=== PATIENT | female | born 1995 | race Caucasian/White ===

== ENCOUNTER 2018-04-27 11:26 | Emergency (ER) | payer MEDICAID, SELFPAY ==
[2018-04-27 11:27] VITALS: BP 154/77; PULSE 86; RESP 18; TEMP 36.6; O2SAT 98; BMI 33.3
--- NOTE | 2018-04-27 11:46 | US_ITS ---
STUDY: FIRST TRIMESTER OBSTETRICAL ULTRASOUND REASON FOR EXAM: Female, 23 years old. Pelvic/low back pain for 3 days. LMP: February 05, 2018 TECHNIQUE: Transvaginal PRIOR ULTRASOUND: None. FINDINGS: There is visualization of a single gestational sac in a normal intrauterine position. The gestational sac shape is within normal limits. There is a visualized yolk sac. The yolk sac measures 6 mm. The placenta is non-visualized. 2.1 x 1.9 x 0.7 cm hypoechoic area along the right inferior margin of the gestational sac is consistent with a small subchorionic hemorrhage. There is visualization of a live embryo. The crown-rump length (CRL) measures 6.02 cm, indicating an estimated gestational age (EGA) of 12 weeks, 4 days. There is demonstrated cardiac activity with a heart rate of 146 bpm. The estimated gestation age (EGA) by LMP is 11 weeks, 4 days. The estimated date of delivery (KYLE) by LMP is November 12, 2018. The estimated gestation age (EGA) by US is 12 weeks, 4 days. The estimated date of delivery (KYLE) by US is November 05, 2018. The uterus measures 12.3 x 8.1 x 7.5 cm. There is no demonstrated uterine fibroid. The cervix is closed. The right ovary measures 3.1 x 3.2 x 1.5 cm. There is no right ovarian cyst. There is no visualized right adnexal mass or complex lesion. The left ovary measures 2.8 x 1.9 x 1.7 cm. There is no left ovarian cyst. There is no visualized left adnexal mass or complex lesion. There is no fluid in the cul de sac. US/Transvaginal w/Preg US IMPRESSION: 1. Single living intrauterine fetus at estimated gestational age of 12 weeks, 4 days. Estimated date of delivery by today's exam of November 05, 2018. 2. 2.1 cm elongated subchorionic hemorrhage suggested along the right inferior margin of the gestational sac. 3. The ovaries are unremarkable. Electronically Signed: Jesus Ramachandran MD at 13:47 EDT , Service support ,
[2018-04-27 12:08] LABS: Absolute Lymphocyte Count 1.96 X10^3/ul (0.83-4.51); Absolute Neutrophil Count 4.4 X10^3/uL (2.0-7.7); Bacteria 0 SEEN /hpf (None Seen); Basophil# 0.01 X10^3/uL; Basophil% 0.1 % (0-1); Eosinophil# 0.07 X10^3/uL; Hematocrit 38.2 % (37-47); Hemoglobin 13.1 g/dl (12.0-15.0); Lymphocyte # 1.96 X10^3/ul (4.0); Mean Corp Hgb Conc 34.3 g/gl (32-36); Mean Corpuscular Hgb 29.5 pg (27.0-32.0); Mean Platelet Vol. 10.4 fl (6.2-12.0); Monocyte# 0.59 X10^3/uL; Monocyte% 8.4 % (0-10); Mucous, Urine 0 SEEN /hpf (<or=2+); Neutrophil # 4.38 X10^3/uL (2.7-7.7); Neutrophil % 62.5 % (47-70); Platelet Count 226 K/mm3 (150-450); RBC Distribution Width CV 12.5 % (11.6-14.6); RBC Distribution Width SD 39.5 fl (35.1-43.9); Red Blood Cells-Urine 0 SEEN /hpf (0-5); Red Blood Count 4.44 M/mm3 (4.2-5.4)
[2018-04-27 12:09] LABS: Color, Urine Yellow (Yellow); Glucose, Dipstick Normal (Normal); Ketone-Dipstick 15 mg/dl (Negative); Leukocyte Esterase-Dipstick 25 /ul (Negative); Nitrite-Dipstick Negative (Negative); Occult Blood-Urine Negative /ul (Negative); Protein-Dipstick Negative (Negative); Urine Bilirubin Dipstick Negative (Negative); Urine Clarity Sl. Cloudy (Clear); Urine Urobilinogen Normal (Normal)
[2018-04-27 12:12] LABS: POSITIVE COUNT NO; POSITIVE DIFFERENTIAL NO; POSITIVE MORPHOLOGY NO
[2018-04-27 12:15] LABS: Squamous Epithelial Cells - UA 0-5 SEEN /hpf (5-10); White Blood Cells 0-5 SEEN /hpf (0-5)
[2018-04-27] MEDS: Acetaminophen 500 MG Tablet 1000 MG PO (12:21)
[2018-04-27 12:22] LABS: Anion Gap 10 (5-15); BUN 7 mg/dL (7-18); BUN/Creat Ratio 16.2 RATIO (10-20); Calcium,Total 9.3 mg/dL (8.5-10.1); Chloride 106 mmol/L (98-107); Creatinine, Serum 0.43 mg/dL (0.55-1.02); EST Glomerular Filtration Rate 195 mL/min (>60); Est Glom Filt Rate - Afr Amer 236 mL/min (>60); Estimated Creatinine Clearance 244.52 ml/min; Glucose 79 mg/dL (74-106); Potassium 3.8 mmol/L (3.5-5.1); Sodium Level 138 mmol/L (136-145)
[2018-04-27] MEDS: 0.9% Normal Saline 1,000 ML 150 ML IV (12:22)
[2018-04-27 15:27] VITALS: BP 111/51; PULSE 89; RESP 16; O2SAT 98
--- NOTE | 2018-04-27 15:31 | ED.VISSUMM ---
- ER Visit Summary Date of Service: 04/27/18 Chief Complaint: Back pain and cramping History of Present Illness: The patient is a 23 F currently 12 weeks . She is Ab0. Patient states had back pain for the last 3 days with abdominal cramping started today only. She is not having any bleeding or discharge. She states that she is not feeling the baby move as much today. She has not yet had an ultrasound. She is scheduled to see her APPAREL RENTAL CLERK [place] on May 10. Physical Examination: Blood pressure is 154/77, otherwise vitals are normal. Head and neck examination is grossly unremarkable. Heart is regular rate and rhythm. No lung sounds are clear. Abdomen is soft with mild superpubic tenderness palpation. There is no guarding or rebound. Hypoactive bowel sounds are noted. Back examination reveals focal tenderness of the spinous processes of L4 and L5. No ecchymosis or abrasions. Test Results: CBC and chemistry studies normal. Blood type is A+. Urinalysis shows 0-5 white cells and 0-5 epithelials. Pelvic ultrasound shows single live intrauterine at 12 weeks 4 days. There is a subchorionic hemorrhage measuring 2.1 cm along the inferior margin of the gestational sac. Emergency Department Course and Treatment: Patient is given Tylenol and IV fluids. I spoke with her SENIOR MEDIA BUYER, in [place]. Patient is scheduled to follow-up with them on May 10 the patient is to keep that appointment. Repeat blood pressure is 111/51. Patient will be given note off work today and tomorrow. Treatment Plan: [] Disposition: Discharge Impression: Threatened AB This note was generated with [email or web address] dictation software. It may contain incorrect words, spelling, and punctuation that were not noted in review of the chart prior to signing ED Disposition - Plan for ED Patient: Chief Complaint: Referrals: Care Physician,No Primary [Primary Care Provider] -
--- NOTE | 2018-04-27 15:37 | ED.DCSUM_ITS ---
- ER Visit Summary Date of Service: 04/27/18 Chief Complaint: Back pain and cramping History of Present Illness: The patient is a 23 F currently 12 weeks . She is Ab0. Patient states had back pain for the last 3 days with abdominal cramping started today only. She is not having any bleeding or discharge. She states that she is not feeling the baby move as much today. She has not yet had an ultrasound. She is scheduled to see her GRADES 9 12 TUTOR [place] on May 10. Physical Examination: Blood pressure is 154/77, otherwise vitals are normal. Head and neck examination is grossly unremarkable. Heart is regular rate and rhythm. No lung sounds are clear. Abdomen is soft with mild superpubic tenderness palpation. There is no guarding or rebound. Hypoactive bowel sounds are noted. Back examination reveals focal tenderness of the spinous processes of L4 and L5. No ecchymosis or abrasions. Test Results: CBC and chemistry studies normal. Blood type is A+. Urinalysis shows 0-5 white cells and 0-5 epithelials. Pelvic ultrasound shows single live intrauterine at 12 weeks 4 days. There is a subchorionic hemorrhage measuring 2.1 cm along the inferior margin of the gestational sac. Emergency Department Course and Treatment: Patient is given Tylenol and IV fluids. I spoke with her BUS AND TROLLEY INSPECTING DISPATCHER, in [place]. Patient is scheduled to follow-up with them on May 10 the patient is to keep that appointment. Repeat blood pressure is 111/51. Patient will be given note off work today and tomorrow. Treatment Plan: [] Disposition: Discharge Impression: Threatened AB This note was generated with [employer] dictation software. It may contain incorrect words, spelling, and punctuation that were not noted in review of the chart prior to signing ED Disposition - Plan for ED Patient: Chief Complaint: Referrals: Care Physician,No Primary [Primary Care Provider] -
--- NOTE | 2018-04-27 15:38 | ED.DEP ---
ED Disposition - Plan for ED Patient: Disposition: Home or Assisted Living Chief Complaint: Instructions: ED Abdominal Pain Rule Out Ectopic Referrals: Vargas Singleton [NON-STAFF] - Keep Kirti appointment
[2018-04-27 15:47] VITALS: PULSE 91; RESP 12
== END 2018-04-27 15:48 | disposition home or self-care (01) ==
PROVIDERS: Emergency Provider Emergency Medicine
DX: O20.0 Threatened abortion (principal); J45.909 Unspecified asthma, uncomplicated; O99.331 Smoking (tobacco) complicating pregnancy, first trimester; Z3A.12 12 weeks gestation of pregnancy
CPT/HCPCS: 76817; 80048; 81001; 85025; 86900; 96360; 96361; 99283; J7030

== ENCOUNTER 2023-06-08 17:56 | Emergency (ER) | payer MEDICAID, SELFPAY ==
[2023-06-08 17:57] VITALS: BP 149/89; PULSE 87; RESP 18; TEMP 36.4; O2SAT 99; BMI 35.5
--- NOTE | 2023-06-08 18:08 | EKG12_ITS ---
Test Reason : DYSRHYTHMIA Blood Pressure : / mmHG Vent. Rate : 073 BPM Atrial Rate : 073 BPM P-R Int : 120 ms QRS Dur : 076 ms QT Int : 376 ms P-R-T Axes : 048 062 051 degrees QTc Int : 414 ms Normal sinus rhythm Normal ECG Confirmed by NEDA SIFUENTES, BRETHA ([id number]), senior technical editor WAQAS DEY ([id number]) on 06/09/2023 9:41:55 AM Referred By: TWILA Confirmed By:BERTHA RED MD
--- NOTE | 2023-06-08 18:10 | EX.ED.DYSGE1 ---
HPI History of Present Illness Chief Complaint: General Illness Narrative Narrative: 28-year-old female presenting with a combination of abdominal pain and chest pain which has been ongoing for 3 weeks. She states both of them come and go and they alternate. Patient states that she does have some worsening acid reflux symptoms. She states she does not take anything for it because she hates Tums. Patient states she eats mostly fast food and she likes to eat [employer], [employer], and she states she works at [employer] and eats there and drinks a lot of coffee. She has been having some diarrhea but no black or bloody stools or emesis. She is nauseous at times with her acid reflux. She states is taken test at home the knees have been negative. She has not had any urinary complaints. She states that all of the pain she experiences whether it is her abdomen or chest is pressure-like in addition to having acid reflux symptoms PFSH PFSH Home Medications omeprazole 20 mg capsule,delayed release 20 mg PO DAILY #30 CAPSULES 06/08/23 [Rx Last Taken Unknown] ondansetron 4 mg disintegrating tablet 4 mg PO Q8H PRN PRN Nausea #14 tabs 06/08/23 [Rx Last Taken Unknown] Allergy/AdvReac Type Severity Reaction Status Date / Time No Known Allergies Allergy Verified 06/08/23 17:58 Social History Smoking Status: Current every day smoker tobacco type: cigarettes and e-cigarettes ROS ROS ED Constitutional Constitutional ED: Denies chills, fever(s) or sweats Eyes Eyes: Denies blurry vision or change in vision ENT ENT ED: Denies ear pain or sore throat Cardiovascular Cardiovascular: Reports chest pain; Denies palpitations or racing heartbeat Respiratory/Chest Respiratory/Chest: Denies cough, dyspnea or sputum Gastrointestinal Gastrointestinal: Reports abdominal pain, diarrhea and nausea; Denies constipation or vomiting Genitourinary Genitourinary ED: Denies dysuria, hematuria or urinary frequency Musculoskeletal Musculoskeletal: Denies arthralgias, myalgias or neck pain Integumentary Denies abscess, Abrasions or rash Neurologic Neurologic: Denies headache(s), paresthesias or weakness Psychiatric Psychiatric: Denies anxiety, depression, suicidal ideation or suicidal thoughts Endocrine Endocrinology: Denies polydipsia or polyuria EXAM Physical Exam Const Vital Signs: 06/08/23 17:57 06/08/23 18:20 Temperature 97.5 F L Temperature Source Temporal Pulse Rate 87 Respiratory Rate 18 Respiratory Effort Normal Respiratory Pattern Normal Blood Pressure 149/89 H Blood Pressure Mean 109 Pulse Ox 99 Oxygen Delivery Method Room Air Positive well nourished General Appearance ED: NAD; Negative for pallor HEENT Reports moist mucous membranes Eyes PERRL and EOMs intact bilaterally Chest Wall inspection of chest normal Resp normal respiratory effort and clear to auscultation bilaterally Auscultation: Negative for rales, rhonchi or wheezes Cardio regular rate and regular rhythm GI normal to inspection, nondistended, normoactive bowel sounds, non-tender and hepatosplenomegaly Back/Spine no CVA tenderness Neuro oriented x3 and CN's II-XII intact bilaterally Sensorium / Orientation: alert Motor Exam: strength 5/5 throughout Psych mental status grossly normal Skin no rashes or lesions noted General Skin Exam: Negative for jaundice or pallor MDM MDM MDM Narrative Medical decision making narrative: Patient presenting with abdominal pain and chest pain. She states that both of the pains feel like pressure and then alternate. She has had this problem for weeks. She has not seen a primary care doctor. She expresses to me that she eats a lot of fast food and a lot of this would worsen her acid reflux which she does not like to take anything for. She states that initially she thought she ate some [employer] which gave her food poisoning but since the problems been ongoing for a while she wanted to come get checked out. Differential includes acute coronary syndrome, pneumonia, GERD, gastritis, colitis, diverticulitis, UTI, pyelonephritis, , dehydration, electrolyte abnormalities, anemia. PE was considered however patient has no risk factors and she is PERC negative. CBC will be obtained to assess white blood cell count, hemoglobin, platelets. CMP to assess liver function and renal function. Lipase to assess for pancreatitis. Urinalysis and hCG to assess for UTI and . Will obtain a chest x-ray as well to rule out pneumonia. Patient will be medicated with a GI cocktail since her abdominal exam is benign. CBC, CMP, lipase all within normal limits. hCG negative. Chest x-ray on my interpretation shows no acute process. Radiology interpretation agrees. High-sensitivity troponin 3. I do not believe she needs a delta troponin. Patient counseled on modifying her as she eats a lot of fast food. She eats a lot of food that would make GERD worse. Discussed this at length. She will be given omeprazole for home as well as shortness of Zofran to take as needed. Patient discharged stable condition. Impression: 1. Chest pain?noncardiac 2. Abdominal pain 3. GERD Lab Data Attestation: I reviewed the patient's lab results. Labs: Laboratory Results - last 24 hr 06/08/23 18:15 WBC 10.4 RBC 5.04 Hgb 15.2 H Hct 43.0 MCV 85.3 MCH 30.2 MCHC 35.3 RDW Std Deviation 37.7 RDW Coeff of [place] 12.2 Plt Count 260 MPV 10.1 Immature Gran % (Auto) 0.200 Neut % (Auto) 60.1 Lymph % (Auto) 32.1 [place] % (Auto) 5.9 Eos % (Auto) 1.4 Baso % (Auto) 0.3 Absolute Neuts (auto) 6.3 Absolute Lymphs (auto) 3.34 Nucleated RBC % 0 Sodium 139 Potassium 3.6 Chloride 107 Carbon Dioxide 24.0 Anion Gap 8 BUN 9 Creatinine 0.72 Estim Creat Clear Calc 149.22 Est GFR (MDRD) Af Amer 125 Est GFR (MDRD) Non-Af 103 BUN/Creatinine Ratio 12.4 Glucose 93 Calcium 9.6 Total Bilirubin 0.40 AST 18 ALT 21 Alkaline Phosphatase 63 Troponin I High Sens 3 Total Protein 7.8 Albumin 4.0 Globulin 3.8 Albumin/Globulin Ratio 1.1 Lipase 28 Serum , Qual NEGATIVE Radiography Diagnostic Testing: Clinical Impression(s) from Imaging Studies Chest X-Ray 06/08/23 18:31 IMPRESSION: Normal x-ray examination of the chest. Electronically Signed: Adrian Escalera MD at 18:48 EDT , Discharge Plan Triage Chief Complaint: General Illness ED Provider: Mark Chapman Dx/Rx/DC Orders Instructions: ED Abdominal Pain Unkn Cause Fem, ED Chest Pain, Noncardiac, ED GERD (Adult) Prescriptions: New ondansetron 4 mg tablet,disintegrating 4 mg PO Q8H PRN PRN (Reason: Nausea) Qty: 14 0RF omeprazole 20 mg capsule,delayed release(DR/EC) 20 mg PO DAILY Qty: 30 0RF Primary Care Provider: Care Physician,No Primary Referrals: Abel Redd MD [Med Staff - Personalized Living Assistant] - 3-5 Days Care Physician,No Primary [Primary Care Provider] - Disposition Disposition: Home, Self Care
[2023-06-08 18:23] LABS: Absolute Lymphocyte Count 3.34 X10^3/uL (0.83-4.51); Absolute Neutrophil Count 6.3 X10^3/uL (2.0-7.7); Basophil# 0.03 X10^3/uL; Basophil% 0.3 % (0-1); Eosinophil# 0.15 X10^3/uL; Eosinophils% 1.4 % (0-5); Hemoglobin 15.2 g/dL (12.0-15.0); Lymphocyte # 3.34 X10^3/ul (0.83-4.51); Lymphocyte % 32.1 % (19-41); Mean Corp Hgb Conc 35.3 g/dL (32-36); Mean Corpuscular Hgb 30.2 pg (27.0-32.0); Mean Corpuscular Volume 85.3 fL (81-99); Mean Platelet Vol. 10.1 fl (6.2-12.0); Monocyte# 0.61 X10^3/uL; Monocyte% 5.9 % (0-10); NRBC Flagged by Analyzer 0 % (0-5); Neutrophil # 6.27 X10^3/uL (2.7-7.7); Neutrophil % 60.1 % (47-70); Platelet Count 260 K/mm3 (150-450); RBC Distribution Width CV 12.2 % (11.6-14.6); RBC Distribution Width SD 37.7 fl (35.1-43.9); Red Blood Count 5.04 M/mm3 (4.2-5.4); White Blood Count 10.4 K/mm3 (4.4-11.0)
--- NOTE | 2023-06-08 18:31 | RAD_ITS ---
STUDY: X-RAY CHEST REASON FOR EXAM: Female, 28 years old. chest pain TECHNIQUE: AP portable COMPARISON: None. FINDINGS: The lungs are clear and expanded. There is no demonstrated pleural abnormality. Normal size heart. Normal mediastinum and jacob. Normal visualized pulmonary arteries. Normal visualized aortic arch and descending thoracic aorta. Normal visualized thoracic spine. Normal visualized ribs, clavicles, and shoulders. There is no demonstrated abnormality of the visualized soft tissue structures of the upper abdomen. RAD/Chest 1 View (Portable) IMPRESSION: Normal x-ray examination of the chest. Electronically Signed: Adrian Escalera MD at 18:48 EDT ,
[2023-06-08] MEDS: Mag Hydrox/Al Hydrox/Simeth 30 ML UDC PO (18:35)
[2023-06-08 18:42] LABS: ALB/GLOB Ratio 1.1 RATIO (0.9-2.4); AST(SGOT) 18 U/L (15-37); Alanine Aminotransfer ALT/SGPT 21 U/L (13-56); Alkaline Phosphatase 63 U/L (45-117); Anion Gap 8 (5-15); BUN 9 mg/dL (7-18); BUN/Creat Ratio 12.4 RATIO (10-20); Calcium,Total 9.6 mg/dL (8.5-10.1); Chloride 107 mmol/L (98-107); Creatinine, Serum 0.72 mg/dL (0.55-1.02); EST Glomerular Filtration Rate 103 mL/min (>60); Est Glom Filt Rate - Afr Amer 125 mL/min (>60); Estimated Creatinine Clearance 149.22 ml/min; Globulin 3.8 g/dL (2.2-4.2); Glucose 93 mg/dL (74-106); Lipase 28 U/L (13-75); Potassium 3.6 mmol/L (3.5-5.1); Protein, Total 7.8 g/dL (6.4-8.2); Sodium Level 139 mmol/L (136-145); Troponin-I HS 3 pg/mL (3.0-54.0)
[2023-06-08 18:56] LABS: Internal QC Validated? YES +Cl - CLEAR BKGD; Pregnancy, Serum, hCG Quali. NEGATIVE Negative
--- NOTE | 2023-06-08 19:20 | CM.ED ---
Social Work Note Referral Source: case find Referral Reason: no PCP SW met with patient and introduced herself and role as [facility] Business Team Leader. Patient lying on hospital bed and agreeable to speak with SW with friend present. SW inquired about patient's insurance and current PCP. Patient verified insurance and reports no current PCP. SW provided patient with a list of local PCPs in network with patient's insurance and accepting new patients. Patient was receptive towards list and voiced no other needs. SW remains available if needs arise. Reshma Juan LABOR ECONOMICS TEACHER, [place]
[2023-06-08 20:01] LABS: Bacteria 0 SEEN /hpf (None Seen)
[2023-06-08 20:04] LABS: Color, Urine Yellow (Yellow); Glucose, Dipstick Normal (Normal); Ketone-Dipstick Negative (Negative); Leukocyte Esterase-Dipstick 25 /ul (Negative); Nitrite-Dipstick Negative (Negative); Occult Blood-Urine 25 /ul (Negative); Protein-Dipstick 30 mg/dl (Negative); Specific Gravity, Urine 1.025 (1.002-1.030); Urine Bilirubin Dipstick Negative (Negative); Urine Clarity Clear (Clear); Urine Urobilinogen Normal (Normal)
[2023-06-08 20:15] LABS: Mucous, Urine RARE /hpf (<or=2+); Red Blood Cells-Urine 0-5 SEEN /hpf (0-5); Squamous Epithelial Cells - UA 0-5 SEEN /hpf (5-10); White Blood Cells 0-5 SEEN /hpf (0-5)
== END 2023-06-08 20:01 | disposition home or self-care (01) ==
PROVIDERS: Emergency Provider Student in an Organized Health Care Education/Training Program; Visit Provider Student in an Organized Health Care Education/Training Program
DX: R07.89 Other chest pain (principal); R10.9 Unspecified abdominal pain; K21.9 Gastro-esophageal reflux disease without esophagitis; R19.7 Diarrhea, unspecified; F17.210 Nicotine dependence, cigarettes, uncomplicated; F17.290 Nicotine dependence, other tobacco product, uncomplicated
CPT/HCPCS: 71045; 80053; 81001; 83690; 84484; 84703; 85025; 93005; 99285; A4216